=== PATIENT | male | born 1965 | race Caucasian/White ===

== ENCOUNTER 2018-10-17 14:58 | Inpatient (IN) ==
[~2018-10-17 14:58] MED LIST: CELECOXIB 200 MG CAPSULE PO SCH; PREGABALIN 75 MG CAPSULE PO SCH; ceFAZolin 2 GM in DEXTROSE 5% IN WATER 50 ML IV SCH; oxyCODONE 10 MG TAB.ER.12H PO SCH
[2018-10-17] MEDS ORDERED: PROPOFOL 200 MG/20 ML VIAL IV ONE (16:57)
[2018-10-17] MEDS ORDERED: MIDAZOLAM 5 MG/5 ML VIAL IV ONE (16:57)
[2018-10-17] MEDS ORDERED: ePHEDrine 50 MG/ML AMPUL IV ONE (16:57)
[2018-10-17] MEDS ORDERED: DEXAMETHASONE 10 MG/ML VIAL IV ONE (16:57)
[2018-10-17] MEDS ORDERED: fentaNYL 100 MCG/2 ML VIAL IV ONE (16:57)
[2018-10-17] MEDS ORDERED: ONDANSETRON 4 MG/2 ML VIAL IV ONE (16:57)
[2018-10-17] MEDS ORDERED: LIDOCAINE HCL/PF 100 MG/5 ML SYRINGE IV ONE (16:57)
[2018-10-17] MEDS ORDERED: GENTAMICIN SULFATE 800 MG/20 ML VIAL IR ONE (17:55)
[2018-10-17] MEDS ORDERED: NALOXONE HCL 0.4 MG/ML VIAL IV PRN (19:45)
[2018-10-17] MEDS ORDERED: IPRATROPIUM/ALBUTEROL 3 ML AMPUL.NEB NEB PRN (19:45)
[2018-10-17] MEDS ORDERED: ACETAMINOPHEN 1,000 MG/100 ML BOTTLE IV ONE (19:45)
[2018-10-17] MEDS ORDERED: diphenhydrAMINE 50 MG/ML VIAL IV PRN (19:45)
[2018-10-17] MEDS ORDERED: FLUMAZENIL 0.1 MG/ML ML IV PRN (19:45)
[2018-10-17] MEDS ORDERED: METHOCARBAMOL 1,000 MG/10 ML VIAL IV PRN (19:45)
[2018-10-17] MEDS ORDERED: ATROPINE SULFATE 0.4 MG/ML VIAL IV PRN (19:45)
[2018-10-17] MEDS ORDERED: METOPROLOL TARTRATE 5 MG/5 ML VIAL IV PRN (19:45)
[2018-10-17] MEDS ORDERED: fentaNYL 100 MCG/2 ML VIAL IV PRN (19:45)
[2018-10-17] MEDS ORDERED: PROMETHAZINE 25 MG/ML VIAL IV PRN (19:45)
[2018-10-17] MEDS ORDERED: ONDANSETRON 4 MG/2 ML VIAL IV PRN ×2 (19:45→20:10)
[2018-10-17] MEDS ORDERED: ePHEDrine 50 MG/ML AMPUL IV PRN (19:45)
[2018-10-17] MEDS ORDERED: POLYETHYLENE GLYCOL 3350 17 GM PACKET PO PRN (20:10)
[2018-10-17] MEDS ORDERED: FLEETS ADULT ENEMA PR PRN (20:10)
[2018-10-17] MEDS ORDERED: ONDANSETRON 4 MG ODT TABLET SL PRN (20:10)
[2018-10-17] MEDS ORDERED: BENZOCAINE/MENTHOL 1 LOZENGE PO PRN (20:10)
[2018-10-17] MEDS ORDERED: TRANEXAMIC ACID 1,000 MG/10 ML VIAL IV ONE (20:10)
[2018-10-17] MEDS ORDERED: MAGNESIUM HYDROXIDE 30 ML ORAL.SUSP PO PRN (20:10)
[2018-10-17] MEDS ORDERED: BISACODYL 10 MG SUPP.RECT PR PRN (20:10)
--- NOTE | 2018-10-17 20:10 | Brief Operative Note ---
Date of procedure: 10/17/18 Pre-op diagnosis: left hip osteoarthritis Post-op diagnosis: same Procedure: left total hip arthroplasty Grafts/Implants: Yes Anesthesia: spinal Complications: none Surgeon: Richard Samaniego Component Engineer: Paulo Kilpatrick Estimated blood loss (cc): 250 Specimens Removed/Pathology: none sent Condition: stable Disposition: PACU
[2018-10-17] MEDS: 0.9 % SODIUM CHLORIDE 1,000 ML IV SCH (21:38)
[2018-10-17] MEDS: 0.9 % SODIUM CHLORIDE 10 ML SYRINGE IV SCH (21:40)
[2018-10-17] MEDS: SENNOSIDES 1 TABLET PO SCH (21:40)
[2018-10-17] MEDS: ASPIRIN 81 MG TAB.CHEW PO SCH (21:40)
[2018-10-17] MEDS: DOCUSATE SODIUM 100 MG CAPSULE PO SCH (21:40)
[2018-10-18] MEDS: ceFAZolin 1 GM VIAL IV SCH ×2 (00:59→08:25)
--- NOTE | 2018-10-18 03:50 | XRay Report ---
CLINICAL INFORMATION: Post-Op Total Hip COMPARISON: None. FINDINGS: Left total hip prostheses is anatomically aligned. Mild degenerative change seen in both SI joints. Right hip is normal. Mild soft tissue swelling left hip as expected IMPRESSION: Negative Interpreted and Authenticated by: Richard Mora 10/18/18
--- NOTE | 2018-10-18 03:57 | XRay Report ---
CLINICAL INFORMATION: left total hip arthroplasty anterior approach COMPARISON: None. FINDINGS: Digital images from the OR are submitted. Final image shows prosthetic acetabulum in anatomic position. Femoral head and neck have been resected. IMPRESSION: OR images as described Interpreted and Authenticated by: Richard Mora 10/18/18
[2018-10-18] MEDS: 0.9 % SODIUM CHLORIDE 10 ML SYRINGE IV SCH ×4 (04:48→20:07)
[2018-10-18] MEDS: oxyCODONE/APAP 5/325MG TABLET PO PRN ×4 (05:03→16:44)
[2018-10-18] MEDS: METHOCARBAMOL 750 MG TABLET PO PRN ×3 (05:04→20:07)
[2018-10-18 05:28] LABS: Hematocrit 36.5 % (41.0-55.0); Hemoglobin 12.2 g/dL (13.5-16.5)
[2018-10-18] MEDS: 0.9 % SODIUM CHLORIDE 1,000 ML IV SCH ×3 (06:00→20:26)
--- NOTE | 2018-10-18 06:57 | XRay Report ---
CLINICAL INFORMATION: post op COMPARISON: 10/17/2018 FINDINGS: Left total hip prostheses remains anatomically aligned. No fracture or osseous abnormality. Mild degeneration seen in both SI joints. Right hip is normal. IMPRESSION: Left total hip prostheses is anatomically aligned Interpreted and Authenticated by: Richard Mora 10/18/18
--- NOTE | 2018-10-18 07:27 | Orthopedic Progress Note ---
Subjective Patient information: Note initiated : 10/18/18 at 7:25 am Service Date, if different from initiated Date: [] Patient: Kg Castillo 53 y/o M admitted on 10/17/18 for Left Total Hip Arthroplasty . Chief Complaint: [] Interval history: doing well. pain under control. didn't sleep much last night Objective Vital signs: Vital Signs Temp Pulse Pulse Resp BP Pulse Ox 10/18/18 03:04 98.2 F 88 20 123/70 96 10/18/18 01:04 86 117/74 96 10/18/18 00:05 86 119/69 98 10/17/18 23:04 69 122/75 96 10/17/18 22:34 69 110/70 96 10/17/18 22:04 68 119/75 96 10/17/18 21:49 69 119/78 92 10/17/18 21:35 66 108/71 98 10/17/18 21:19 72 118/79 96 10/17/18 21:04 98.4 F 71 114/76 97 10/17/18 21:00 98.2 F 78 78 16 126/73 10/17/18 20:50 75 14 116/93 95 10/17/18 20:40 77 14 111/76 10/17/18 20:30 86 86 14 119/84 100 10/17/18 20:25 71 71 13 114/76 100 10/17/18 20:20 98.6 F 72 72 14 131/77 100 10/17/18 15:18 98.4 F 65 16 162/93 98 Intake and Output 10/17/18 10/18/18 10/18/18 21:59 05:59 13:59 Intake Total 2100 1650 Output Total 750 Balance 2100 900 Intake: IV 1000 Sodium Chloride 0.9% 1,000 ml @ 1000 125 mls/hr IV .Q8H ANA Rx#: [id number] Oral 650 IV - Manual Only 2100 Output: Void Amount 750 Other: Stool Size Smear Stool Color Brown Weight 196 lb Intake & Output: Intake & Output 10/17/18 10/18/18 10/18/18 21:59 05:59 13:59 Intake Total 2100 1650 Output Total 750 Balance 2100 900 Weight 196 lb Intake: IV 1000 Sodium Chloride 0.9% 1,000 ml @ 1000 125 mls/hr IV .Q8H ANA Rx#: [id number] Oral 650 IV - Manual Only 2100 Output: Void Amount 750 Other: Stool Size Smear Stool Color Brown Incision: Yes healing Incision clean and dry: Yes Dressing: Yes clean, Yes dry, Yes intact Weight bearing status: full Neurological exam IM: Yes abnormal gait, Yes alert, Yes oriented X3, Yes motor sensory intact, Yes neurovascular intact Extremities exam IM: No calf tenderness, Yes Foot pink and warm, Yes neurovascular intact - Labs CBC & BMP: 10/18/18 04:22 Labs: 10/18/18 04:22 Hgb 12.2 L Hct 36.5 L Assessment and Plan (1) Hip osteoarthritis A: pod 1 s/p left donny P: wbat pain control dvt prophylaxis d/c planning pt today Status: Acute
--- NOTE | 2018-10-18 07:29 | Discharge Summary ---
Ortho Discharge - MIKEY - Patient Instructions Diet: Regular Diet Activity: ambulate with assistive device, weight bearing as tolerated Total Hip Protocol: Follow activity instructions as provided by Physical Therapy. Dressing Care: May shower in 2 days - Problem Maintenance (1) Hip osteoarthritis Status: Acute - Follow Up Plan Follow Up Appointments: Sandra Zhu PA-C [Physician Research Chief Engineer] - 10/31/18 9:40 am Disposition: Home, Self-Care Prognosis: Good Rehab Potential: Good I certify that the patient requires SNF services: No Overall status at discharge: patient is progressing back to baseline
[2018-10-18] MEDS: ASPIRIN 81 MG TAB.CHEW PO SCH ×2 (08:24→20:07)
[2018-10-18] MEDS: ATENOLOL 50 MG TABLET PO SCH (08:24)
[2018-10-18] MEDS: DOCUSATE SODIUM 100 MG CAPSULE PO SCH ×2 (08:24→20:07)
[2018-10-18] MEDS: KETOROLAC 30 MG/ML VIAL IV PRN ×2 (08:43→16:45)
--- NOTE | 2018-10-18 09:20 | Operative Note ---
DATE OF OPERATION: 10/17/2018 PREOPERATIVE DIAGNOSIS: Degenerative joint disease, left hip. POSTOPERATIVE DIAGNOSIS: Degenerative joint disease, left hip. PROCEDURE: Left total hip arthroplasty. SURGEON: Nancy Samaniego M.D. COLLECTIONS ASSISTANT SURGEON: Paulo Kilpatrick PA-C. The PA's assistance was required for the safe and efficient completion of the entire case. This provider's expertise and technical skill were required throughout the case. The PA assisted with preoperative coordination, intraoperative retraction, wound closure, dressing and splint application, as well as postoperative documentation and care coordination. ANESTHESIA: Spinal with LMA assist. ESTIMATED BLOOD LOSS: 250 mL. COMPLICATIONS: None noted. SPECIMENS REMOVED: None. DRAINS: None. IMPLANTS: [place] Hole Eliminator PS; DePuy [place] Gription acetabular shell 54 mm diameter; DePuy [place] Altrx polyethylene acetabular liner, neutral 38 x 54; DePuy femoral stem Actis Duofix size 7 standard collar; DePuy Biolox delta ceramic femoral head +5, 36 mm diameter. INDICATIONS: The patient has had a longstanding history of worsening pain in the hip that has failed conservative treatment. Radiographs have confirmed advanced degenerative joint disease. After a long discussion about treatment options, the patient elected to proceed with a hip arthroplasty. The risks and benefits were discussed with the patient in detail including, but not limited to, the risks of anesthesia, problems with the heart or lungs related to anesthesia, infection, compromise or injury to the nerves and blood vessels, deep venous thrombosis, pulmonary embolism, pneumonia, continued pain after surgery, worsening pain or symptoms after surgery, swelling, loss of motion, instability, leg length discrepancy, and need for repeat surgery. DESCRIPTION OF PROCEDURE: The patient was seen in pre-anesthesia waiting room where all questions were answered and the correct side and site were identified and marked. The patient was then brought to the operating room and administered the anesthetic and given pre-operative antibiotics. A time-out was then called. The patient was placed on the hip fracture table with all prominences well-padded using the standard frame and the extremity was prepped and draped in the usual sterile fashion. Anesthesia gave the patient 1 gram of tranexamic acid via an intravenous route. A standard anterior approach was made. We dissected through the skin and subcutaneous tissue and made a pouch and placed the self-retaining retractor. The tensor fascia was split in line with the incision and then I dissected by hand over the tensor fascia muscle, and we came down and placed retractors on the medial and lateral aspect of the neck. I then used a Almodovar retractor distally. We placed a retractor along the lateral side and then I used electrocautery to coagulate the perforated vessels and the vessels overlying the neck. I then dissected down and found the anterior capsule. I split the anterior capsule from the acetabulum out to the lateral aspect of the neck and T'd it and then brought this down medially to the piriformis and tagged this. We placed the retractors along the inside of the neck. We then placed traction and slight external rotation. We then used a hip skid to partially dislocate the hip. I brought the hip back into slight external rotation. We placed a corkscrew through the head. We then visualized the neck. I did a neck cut of about 18 mm from the templated side and then removed the head. I then did slight traction and external rotation, exposed the acetabulum and placed retractors. We next turned our attention to the acetabulum. Retractors were placed for optimal visualization. A complete labral excision was performed. The capsule was preserved for later closure. We began reaming using anatomic landmarks with the DePuy [place] acetabular system. We medialized the cup and reamed up to provide good fill and coverage of the trial. When the trial was stable and appropriately positioned with approximately 25 degrees of anteversion and 43 degrees of abduction, we impacted the DePuy [place] cup. Osteophytes were removed from around the shell. This was done under fluoroscopy with JointPoint. We placed the final liner, as well as the [place] Hole Eliminator. We then dropped the femur with external rotation. We placed retractors and did a capsular release along the medial neck down to the calcar. We made a small capsulotomy proximally, as well as a split on the superior of the greater trochanter. Retractors were placed for visualization of the femur. I then broached using the DePuy Actis stem to a stable platform medial, lateral, and rotationally with the appropriate version. We then performed a calcar reaming off the broach. I then reduced the hip. We used JointPoint to confirm that our leg length was appropriate. We had about 7-8 mm of increased offset which I felt was reasonable. Trials were then placed and optimized for leg length and stability. We used the leg length and offset guide to confirm our trials. Best stability, length, and offset characteristics were obtained with these sizes. We removed all trials and impacted the femoral stem to its broach location and placed a head. Final reduction was performed. Again, good stability, leg length, and offset characteristics were noted. We irrigated with three liters of antibiotic saline. We closed the capsule with #2 FiberWire. We closed the fascia with 0 Vicryl. We closed the subcutaneous tissue and skin in layers out to Dermabond on the skin. A sterile pressure dressing and abduction wedge was applied. All needle and sponge counts were correct. The patient was transferred to the recovery room in stable condition. ADALI:la nena Job ID: [id number] Doc ID: [id number] Nancy Samaniego MD
[2018-10-18] MEDS ORDERED: PHENobarb/HYOSCY/ATROPINE/SCOP 1 DOSE BOTTLE PO PRN (10:21)
[2018-10-18] MEDS: HYDROmorphone 2 MG/ML VIAL IV PRN (19:05)
[2018-10-18] MEDS: SENNOSIDES 1 TABLET PO SCH (20:06)
[2018-10-18] MEDS ORDERED: ZOLPIDEM 5 MG TABLET PO ONE (21:00)
[2018-10-19] MEDS: oxyCODONE/APAP 5/325MG TABLET PO PRN ×4 (00:08→13:53)
[2018-10-19] MEDS: HYDROmorphone 2 MG/ML VIAL IV PRN ×2 (02:04→04:35)
[2018-10-19] MEDS: 0.9 % SODIUM CHLORIDE 1,000 ML IV SCH ×2 (04:36→13:51)
[2018-10-19] MEDS: 0.9 % SODIUM CHLORIDE 10 ML SYRINGE IV SCH (04:36)
[2018-10-19] MEDS: KETOROLAC 30 MG/ML VIAL IV PRN (05:03)
[2018-10-19 05:42] LABS: Hematocrit 33.2 % (41.0-55.0); Hemoglobin 11.1 g/dL (13.5-16.5)
--- NOTE | 2018-10-19 07:45 | Orthopedic Progress Note ---
Subjective Patient information: Note initiated : 10/19/18 at 7:43 am Service Date, if different from initiated Date: [] Patient: Kg Castillo 53 y/o M admitted on 10/17/18 for Left Total Hip Arthroplasty . Chief Complaint: [2 days s/p left MIKEY Patient doing well today. Had a lot of pain overnight, thinks it was from sitting too much and not taking his meds on time. Feels better now. Ambulating well, urinating okay. Denies numbness, tingling, SOB, CP, calf pain.] Objective Vital signs: Vital Signs Temp Pulse Resp BP Pulse Ox 10/19/18 04:38 98.2 F 86 16 108/62 94 10/19/18 00:10 98.4 F 76 16 112/67 99 10/18/18 19:07 98.8 F 72 16 105/62 97 10/18/18 18:39 72 18 95 10/18/18 16:00 98.8 F 84 20 117/72 97 10/18/18 14:00 98.4 F 80 20 112/68 95 10/18/18 12:00 82 10/18/18 08:31 98.9 F 85 20 128/85 97 10/18/18 08:00 87 Intake and Output 10/18/18 10/19/18 10/19/18 21:59 05:59 13:59 Intake Total 1320 400 Balance 1320 400 Intake: Oral 1320 400 Other: Meal Dinner Percent of Meal Consumed 100% # Voids 1 1 Weight 196 lb Intake & Output: Intake & Output 10/18/18 10/19/18 10/19/18 21:59 05:59 13:59 Intake Total 1320 400 Balance 1320 400 Weight 196 lb Intake: Oral 1320 400 Other: Meal Dinner Percent of Meal Consumed 100% # Voids 1 1 Incision: Yes healing, No draining, No red, No swollen, No inflamed, Yes clean and dry Incision clean and dry: Yes Dressing: Yes clean, Yes dry, Yes intact Weight bearing status: as tolerated Neurological exam IM: Yes alert, Yes oriented X3, Yes motor sensory intact, Yes neurovascular intact Extremities exam IM: Yes normal capillary refill, Yes Foot pink and warm, Yes neurovascular intact - Periperhal Pulses Peripheral pulses: 2+: dorsalis pedis (L), dorsalis pedis (R), posterior tibialis (L), posterior tibialis (R) - Labs CBC & BMP: 10/19/18 04:37 Labs: 10/19/18 10/18/18 04:37 04:22 Hgb 11.1 L 12.2 L Hct 33.2 L 36.5 L Assessment and Plan (1) Hip osteoarthritis 2 days s/p left MIKEY: -d/c to home today -patient's already took pain Rx and walker Rx -dermabond -PT -call for pain Rx refill to office -WBAT -ASA 81mg BID x 4 weeks -f/u in clinic in 10-14 days Status: Acute
[2018-10-19] MEDS: ASPIRIN 81 MG TAB.CHEW PO SCH (09:36)
[2018-10-19] MEDS: DOCUSATE SODIUM 100 MG CAPSULE PO SCH (09:36)
[2018-10-19] MEDS: ATENOLOL 50 MG TABLET PO SCH (09:37)
== END 2018-10-19 14:35 | disposition home or self-care (01) | DRG 470 ==
LOC: MEDSUR 14:58
PROVIDERS: ADMIT Orthopaedic Surgery Sports Medicine; ATTEND Orthopaedic Surgery Sports Medicine